=== PATIENT | male | born 1995 | race Caucasian/White ===

== ENCOUNTER 2022-08-24 13:24 | Emergency (ER) | payer OTHER ==
[~2022-08-24] VITALS: Ht 180.3 cm; Wt 86.4 kg
[2022-08-24 13:52] VITALS: BP 140/114
--- NOTE | 2022-08-24 14:19 | NUR ---
Patient discharged with v/s stable. Written and verbal after care instructions given and explained. Patient verbalized understanding. Ambulatory with to car. All questions addressed prior to discharge. Advised to follow up with PMD.
== END 2022-08-24 14:19 | disposition home or self-care (01) ==
LOC: MED 13:24
DX: L91.0 Hypertrophic scar (principal)
CPT/HCPCS: 99281

== ENCOUNTER 2023-06-26 13:16 | Emergency (ER) | payer OTHER ==
[~2023-06-26] VITALS: Ht 177.8 cm; Wt 83.9 kg
[2023-06-26 13:21] VITALS: BP 151/73; PULSE 59; RESP 18; TEMP 97.6; O2SAT 100
[2023-06-26] MEDS ORDERED: IBUP-1842 PO (14:02)
[2023-06-26 14:18] VITALS: BP 151/73; PULSE 59; RESP 18; TEMP 97.6; O2SAT 100
== END 2023-06-26 14:18 | disposition home or self-care (01) ==
LOC: MED 13:16
DX: M54.6 Pain in thoracic spine (principal); Z79.899 Other long term (current) drug therapy
CPT/HCPCS: 99282